=== PATIENT | female | born 1970 | race Caucasian/White ===

== ENCOUNTER 2017-04-11 16:56 | Emergency (ER) | payer BC, OTHER ==
[2017-04-11 17:12] VITALS: BP 128/80; PULSE 109; TEMP 98.4; BMI 19.5
[2017-04-11] MEDS ORDERED: PANTOPRAZOLE SODIUM 40 MG in SODIUM CHLORIDE 100 ML IVPB ONE (17:38)
[2017-04-11] MEDS ORDERED: MAG HYDROX/AL HYDROX/SIMETH 30 ML UNIT-DOSE CUP PO ONE (17:39)
[2017-04-11] MEDS ORDERED: SODIUM CHLORIDE 500 ML IV STA (17:41)
--- NOTE | 2017-04-11 17:41 | PDOC ---
History of Present Illness - General Chief Complaint: Pain, Acute Stated Complaint: BLURRY VISION Time Seen by Provider: 04/11/17 17:23 - History of Present Illness Initial Comments: 04/11/17 17:39 46 yo F with h/o DVT, HTN, depression, Multiple Sclerosis, Optic Neuritis, and Reflux who presents with abdominal pain.. Spouse at bedside to assist in report. Reports sharp, burning epigastric pain Q30 minutes for the past 2 days. Pain lasts 2-3 minutes. Endorses nausea without vomiting, and lightheadedness for past 2 days. Symptoms non positional and not exacerbated with movement, or position. Denies migration of pain or radiation to back. Has been experiencing dysuria for past week.Denies fevers/chills, postprandial pain, diarrhea, constipation, blood in stool, hematuria, flank pain. Denies OTC analgesia or treatment for reflux symptoms. Denies h/o abdominal surgery, gastrointestinal disease, or GI like illness. Per Pt. spouse, she has been expereincing sucidal thoughts beginning 04/06. She has called her spouse and told him she wants to kill herself. She does not have a plan, and has no h/o prior suicide attempt. He states that she has been crying and eating less for the past 7 days. Her response is "everyone is distant." Her family live out the state, and she has been struggling with her pain control over the past week. Pt. currently on duloxetine. Past History - Past Medical History Allergies/Adverse Reactions: Allergies Allergy/AdvReac Type Severity Reaction Status Date / Time Iodinated Contrast Media - Allergy Severe Difficulty Verified 04/11/17 17:07 Oral and Breathing Home Medications: Ambulatory Orders Pantoprazole Sodium [Protonix -] 20 mg PO BID #14 tablet.ec 01/11/14 Amlodipine Besylate [Norvasc -] 2.5 mg PO DAILY 04/11/17 Duloxetine HCl 60 mg PO DAILY 04/11/17 Interferon Beta-1A/Albumin [Avonex 30 Mcg Vial Kit] 30 mcg IM WEEKLY 04/11/17 Sulfamethoxazole/Trimethoprim [Bactrim Ds Tablet] 1 each PO DAILY #5 tablet HTN: Yes Psychiatric Problems: Yes (DEPRESSION) Other medical history: MULTIPLE SCLEROSIS - Psycho/Social/Smoking Cessation Hx Suicidal Ideation: No Smoking History: Never smoked Have you smoked in the past 12 months: No Hx Alcohol Use: No Drug/Substance Use Hx: No Substance Use Type: None Hx Substance Use Treatment: No *Physical Exam - Vital Signs Last Vital Signs Temp Pulse Resp BP Pulse Ox 98.4 F 109 H 19 128/80 97 04/11/17 17:08 04/11/17 17:08 04/11/17 17:08 04/11/17 17:08 04/11/17 17:08 04/11/17 18:28 GENERAL: Awake, alert, and fully oriented, in no acute distress HEAD: No signs of trauma, normocephalic, atraumatic EYES: PERRLA, EOMI, sclera anicteric, conjunctiva clear ENT: Auricles normal inspection, hearing grossly normal, nares patent, oropharynx clear without exudates. Moist mucosa NECK: Normal ROM, supple, no lymphadenopathy, JVD, or masses LUNGS: No distress, speaks full sentences, clear to auscultation bilaterally HEART: Regular rate and rhythm, normal S1 and S2, no murmurs, rubs or gallops, peripheral pulses normal and equal bilaterally. ABDOMEN: Soft, nontender, normoactive bowel sounds. No guarding, no rebound. No masses EXTREMITIES: Normal inspection, Normal range of motion, no edema. No clubbing or cyanosis. NEUROLOGICAL: Cranial nerves II through XII grossly intact. Normal speech, normal gait, no focal sensorimotor deficits SKIN: Warm, Dry, normal turgor, no rashes or lesions noted. - Physical Exam Comments: 04/11/17 18:34 GENERAL: Awake, alert, and fully oriented, in no acute distress HEAD: No signs of trauma, normocephalic, atraumatic EYES: PERRLA, EOMI, sclera anicteric, conjunctiva clear ENT: Auricles normal inspection, hearing grossly normal, nares patent, oropharynx clear without exudates. Moist mucosa NECK: Normal ROM, supple, no lymphadenopathy, JVD, or masses LUNGS: No distress, speaks full sentences, clear to auscultation bilaterally HEART: Regular rate and rhythm, normal S1 and S2, no murmurs, rubs or gallops, peripheral pulses normal and equal bilaterally. ABDOMEN: + Epigastric tenderness, Soft, normoactive bowel sounds. Negative No guarding, no rebound. No masses. Absent HSP. EXTREMITIES: Normal inspection, Normal range of motion, no edema. No clubbing or cyanosis. NEUROLOGICAL: Cranial nerves II through XII grossly intact. Normal speech, normal gait, no focal sensorimotor deficits SKIN: Warm, Dry, normal turgor, no rashes or lesions noted ED Treatment Course - LABORATORY CBC & Chemistry Diagram: 04/11/17 17:45 04/11/17 17:45 Medical Decision Making - Medical Decision Making 04/11/17 18:53 46 yo F h/o optic neuritis, multiple sclerosis, and depression who presents with abdominal pain. Pt. endorses epigastirc pain, and recent nausea, dysuria, and lightheadedness. Increasing depression over recent illness. Moderate supsicion of UTI. DDx: UTI, GERD, PUD ED course: CBC, CMP, Lipase, UA 500 ml NS Maloox PO Protonix IVPB 04/11/17 18:58 Urine Trace Leuk Est. 2+ blood TMP-SMX Tobramycin opthalmic jayson. Discharge *DC/Admit/Observation/Transfer Diagnosis at time of Disposition: UTI (urinary tract infection) Qualifiers: Urinary tract infection type: site unspecified Hematuria presence: without hematuria Qualified Code(s): N39.0 - Urinary tract infection, site not specified - Discharge Dispostion Disposition: HOME Admit: No - Prescriptions Prescriptions: Sulfamethoxazole/Trimethoprim [Bactrim Ds Tablet] 1 each PO DAILY #5 tablet - Patient Instructions Printed Discharge Instructions: DI for Depression -- Adult Additional Instructions: Please return to ED if you experience any fevers/chills, Severe abdominal pain, nausea/vomiting ,or worsening symptoms. Print Language: TURKMEN - Attestations Physician Attestion: 04/11/17 19:00 I, Dr. Levi Kong, attest that this document has been prepared under my direction and personally reviewed by me in its entirety. I further attest, that it accurately reflects all work, treatment, procedures and medical decision -making performed by me.
[2017-04-11] MEDS ORDERED: PANTOPRAZOLE SODIUM 100 ML IVPB ONE (17:58)
[2017-04-11] MEDS ORDERED: MAG HYDROX/AL HYDROX/SIMETH 30 ML UNIT-DOSE CUP ONE (17:59)
[2017-04-11 18:00] LABS: BASOPHIL 0.7 % (0-2.0); EOSINOPHIL 0.4 % (0-4.5); MCH 29.5 pg (25.7-33.7); MCHC 32.8 g/dl (32.0-36.0); MEAN CELL VOLUME 89.7 fl (80-96); MEAN PLT VOLUME 8.1 fl (7.5-11.1); NEUTROPHILS 44.9 % (42.8-82.8); PLATELET COUNT 315 K/MM3 (134-434); RDW 13.2 % (11.6-15.6); WHITE BLOOD COUNT 5.2 K/mm3 (4.0-10.0)
[2017-04-11 18:04] LABS: URINE APPEARANCE CLOUDY; URINE BILIRUBIN NEGATIVE (NEGATIVE); URINE BLOOD 3+ (NEGATIVE); URINE COLOR DKYELLOW; URINE GLUCOSE (UA) NEGATIVE (NEGATIVE); URINE KETONE NEGATIVE (NEGATIVE); URINE LEUK ESTERASE TRACE (NEGATIVE); URINE NITRITE POSITIVE (NEGATIVE); URINE UROBILINOGEN NEGATIVE mg/dL (0.2-1.0)
[2017-04-11 18:09] LABS: URINE PROTEIN 1+ (NEGATIVE)
[2017-04-11 18:12] LABS: URINE BACTERIA MANY /hpf (NONE SEEN); URINE HYALINE CAST 13 /lpf; URINE MUCUS MANY; URINE RBC 2 /hpf (0-3); URINE WBC 8 /hpf (3-5)
[2017-04-11] MEDS ORDERED: SULFAMETHOXAZOLE/TRIMETHOPRIM 800MG/160MG D.S. TABLET PO ONE (18:21)
[2017-04-11] MEDS ORDERED: TOBRAMYCIN 0.3% OPHTH SOLN 5 ML BOTTLE OU ONE (18:21)
[2017-04-11] MEDS ORDERED: TOBRAMYCIN 0.3% OPHTH SOLN 5 ML BOTTLE ONE (18:24)
[2017-04-11] MEDS ORDERED: SULFAMETHOXAZOLE/TRIMETHOPRIM 800MG/160MG D.S. TABLET ONE (18:25)
--- NOTE | 2017-04-11 18:25 | PDOC ---
Attending Attestation - HPI HPI: The patient is a 46 yo F with a past medical history significant for MS, caesarian who presents with bilateral itchy eyes and abdominal pain. Patients history is provided by her boyfriend as patient is angolan speaking. The patient also reports 3 days of nausea and abdominal pain. She states she hasnt seen her neurologist recently. The patient just finished her LMP. The patient takes interferon for her MS. The patient also notes she occasionally feels very flushed. The patient denies fevers, chills, vomiting and diarrhea. The patient denies lightheadedness and dizziness. The patient denies chest pain and palpitations. PCP: Dr. Osmel Stover - Physicial Exam PE: GENERAL: Well developed, well nourished. Awake and alert. No acute distress. HEENT: Normocephalic, atraumatic. PERRLA, EOMI. No conjunctival pallor. Sclera are non- icteric. Moist mucous membranes. Oropharynx is clear. NECK: Supple. Full ROM. No JVD. Carotid pulses 2+ and symmetric, without bruits. No thyromegaly. No lymphadenopathy. CARDIOVASCULAR: Regular rate and rhythm. No murmurs, rubs, or gallops. Distal pulses are 2+ and symmetric. PULMONARY: No evidence of respiratory distress. Lungs clear to auscultation bilaterally. No wheezing, rales or rhonchi. ABDOMINAL: Soft. epigastric tenderness to palpation. Non-distended. No rebound or guarding. No organomegaly. Normoactive bowel sounds. MUSCULOSKELETAL Normal range of motion at all joints. No bony deformities or tenderness. No CVA tenderness. EXTREMITIES: No cyanosis. No clubbing. No edema. No calf tenderness. SKIN: Warm and dry. Normal capillary refill. No rashes. No jaundice. NEUROLOGICAL: Alert, awake, appropriate. Cranial nerves 2-12 intact. No deficits to light touch and temperature in face, upper extremities and lower extremities. No motor deficits in the in face, upper extremities and lower extremities. Normoreflexic in the upper and lower extremities. Normal speech. Toes are down-going bilaterally. Gait is normal without ataxia. PSYCHIATRIC: Cooperative. Good eye contact. Appropriate mood and affect. - Medical Decision Making Documentation prepared by Nallely Silverio, acting as medical practitioners for Cherie Hillman MD/. <Nallely Sliverio - Last Filed: 04/11/17 18:28> - Resident Resident Name: Levi Kong - HPI HPI: 04/11/17 18:22 46 yo female has c/o epigatric burning and pain. No vomiting,no fever,no diarrhea, c/o dysuria and b/l itchy eyes, She does not diplopia PMH MS,optic neuritis,HTN Dr Stover is her PCP She has seen Dr Delaney for her MS - Physicial Exam PE: 04/11/17 18:32 46 yo female ,seated relaxed on gurney with c/o dysuria ,epigastric discomfort and itchy eyes for 1 day heent eyes-teofilo eomi ,sl injected,pt is rubbing her eyes neck supple lungs sta c/l cvs tachycardia abd soft, subjective discomfort in all quadrant,no guarding,no rebound neuro axox3 <Cherie Hillman - Last Filed: 04/11/17 18:35>
[2017-04-11 18:28] LABS: ALBUMIN 4.3 g/dl (3.4-5.0); ANION GAP 6 (8-16); CALCIUM 9.5 mg/dL (8.5-10.1); CO2 29 mmol/L (21-32); GLUCOSE,RANDOM 101 mg/dL (74-106); SGOT/AST 18 U/L (15-37); SGPT/ALT 20 U/L (12-78)
[2017-04-11 18:31] LABS: ALK PHOS 67 U/L (45-117); BILIRUBIN,TOTAL 0.4 mg/dL (0.2-1.0); CREATININE 0.6 mg/dL (0.55-1.02); TOT PROT 8.5 g/dl (6.4-8.2)
== END 2017-04-11 19:37 | disposition home or self-care (01) ==
LOC: JER 16:56
PROC: 3E033GC Introduction of Other Therapeutic Substance into Peripheral Vein, Percutaneous Approach (ICD-10-PCS; principal; 2017-04-11)
DX: N39.0 Urinary tract infection, site not specified (principal); F32.9 Major depressive disorder, single episode, unspecified; K21.9 Gastro-esophageal reflux disease without esophagitis; G35 Multiple sclerosis
CPT/HCPCS: 36415; 80053; 81003; 81015; 83690; 85025; 87086; 87186; 96365; 99284-25

== ENCOUNTER 2017-11-03 15:51 | Emergency (ER) | payer BC ==
[2017-11-03 16:40] VITALS: BP 137/101; PULSE 120; TEMP 98.2; BMI 19.8
--- NOTE | 2017-11-03 16:43 | PDOC ---
Rapid Medical Evaluation Chief Complaint: Pain Time Seen by Provider: 11/03/17 16:32 Medical Evaluation: Allergies Allergy/AdvReac Type Severity Reaction Status Date / Time Iodinated Contrast- Oral and Allergy Severe Difficulty Verified 04/11/17 17:07 IV Dye Breathing [Iodinated Contrast Media - Oral and] 11/03/17 16:40 pt c/o: swelling, redness, increased warmth, and burning pain to left foot x 3 days, hx ms, went to see neurologist but unable to see her since it was busy Pt on brief exam: warm, erythematous and edematous left foot, 2+ pedal pulse, tachy and hypertensive Pt ordered for : none pt to proceed to the ED:
--- NOTE | 2017-11-03 17:53 | PDOC ---
History of Present Illness - General Chief Complaint: Pain Stated Complaint: PAIN DUE TO MS Time Seen by Provider: 11/03/17 16:32 - History of Present Illness Initial Comments: 11/03/17 19:17 The patient is a 47 year old female with a history of MS who presents for evaluation of left lower extremity redness. The patient reports a 3 day history of left foot tenderness and redness. She attempted to see her neurologist, but was unable to obtain an appointment prompting her presentation to the ED today for evaluation. She denies any fevers, chills, SOB, chest pain , nausea, vomiting, abdominal pain, or changes with urination or bowel movements. She denies any other symptoms. Past History - Past Medical History Allergies/Adverse Reactions: Allergies Allergy/AdvReac Type Severity Reaction Status Date / Time Iodinated Contrast- Oral and Allergy Severe Difficulty Verified 04/11/17 17:07 IV Dye Breathing [Iodinated Contrast Media - Oral and] Home Medications: Ambulatory Orders Pantoprazole Sodium [Protonix -] 20 mg PO BID #14 tablet.ec 01/11/14 Amlodipine Besylate [Norvasc -] 2.5 mg PO DAILY 04/11/17 Duloxetine HCl 60 mg PO DAILY 04/11/17 Interferon Beta-1A/Albumin [Avonex 30 Mcg Vial Kit] 30 mcg IM WEEKLY 04/11/17 Cephalexin [Keflex] 500 mg PO QID #40 capsule 11/03/17 Sulfamethoxazole/Trimethoprim [Bactrim Ds -] 2 tab PO DAILY #40 tablet 11/03/17 COPD: No HTN: Yes Psychiatric Problems: Yes (DEPRESSION) - Suicide/Smoking/Psychosocial Hx Smoking History: Never smoked Have you smoked in the past 12 months: No Information on smoking cessation initiated: No Hx Alcohol Use: No Drug/Substance Use Hx: No Substance Use Type: None Hx Substance Use Treatment: No Review of Systems - Review of Systems Comments:: 11/03/17 19:32 Constitutional: No fevers, chills, fatigue, malaise HEENT: No Rhinorrhea, nasal congestion, visual changes Cardiovascular: No chest pain, syncope, palpitations, lightheadedness Respiratory: No Cough, SOB, Hemoptysis, Gastrointestinal: No Abdominal pain, Nausea, Vomiting, Constipation, Diarrhea, Melena Genitourinary: No Dysuria, Frequency, Urgency, Hesitancy, Hematuria, Flank pain Musculoskeletal: No Myalgia, arthralgia Skin: Left foot redness and tenderness. No rashes, itching, bruising, pallor Neurologic: No Headache, Dizziness, Numbness, Weakness, or Tingling Psychiatric: No Hallucinations. No SI or HI *Physical Exam - Vital Signs Last Vital Signs Temp Pulse Resp BP Pulse Ox 98.2 F 120 H 18 137/101 100 11/03/17 16:33 11/03/17 16:33 11/03/17 16:33 11/03/17 16:33 11/03/17 16:33 - Physical Exam Comments: 11/03/17 19:33 General Appearance: Nourished. No Apparent Distress HEENT: EOMI, MICKEY. No Pharyngeal Erythema, Tonsillar Exudate, Tonsillar Erythema Neck: No Cervical Lymphadenopathy Respiratory/Chest: Lungs Clear, Normal Breath Sounds. No Crackles, Rales, Rhonchi, Wheezing Cardiovascular: Regular Rhythm, Regular Rate. No Murmur, Gallops, Rubs Gastrointestinal/Abdominal: Normal Bowel Sounds, Soft. No Guarding, Rebound, Tenderness Musculoskeletal: No CVA Tenderness Extremity: Erythema and warmth to the left foot to the ankle. Normal Capillary Refill Integumentary: Normal Color, Dry, Warm Neurologic: Fully Oriented, Alert, Normal Mood/Affect, Normal Response, ED Treatment Course - LABORATORY CBC & Chemistry Diagram: 11/03/17 18:00 11/03/17 18:00 Medical Decision Making - Medical Decision Making 11/03/17 17:39 The patient is a 47 year old female with a history of MS who presents for evaluation of left lower extremity redness. Given the patient's physical exam, her symptoms are most consistent with a left foot cellulitis. We will obtain a cbc, cmp to evaluate further and treat the patient here in the ED with bactrim and keflex. We will continue to monitor and reassess. 11/03/17 19:40 CBC, cmp are unremarkable. We are comfortable discharging the patient home at this time with neurology and pcp follow up. We discussed return precautions with the patient including but not limited to: worsening redness, lymphangitis, worsening pain, fevers. We will send the patient on a course of bactrim and keflex. The patient voiced understanding and is agreeable with the plan. *DC/Admit/Observation/Transfer Diagnosis at time of Disposition: Cellulitis Qualifiers: Site of cellulitis: extremity Site of cellulitis of extremity: lower extremity Laterality: left Qualified Code(s): L03.116 - Cellulitis of left lower limb - Discharge Dispostion Disposition: HOME Condition at time of disposition: Good Admit: No - Prescriptions Prescriptions: Cephalexin [Keflex] 500 mg PO QID #40 capsule Sulfamethoxazole/Trimethoprim [Bactrim Ds -] 2 tab PO DAILY #40 tablet - Referrals Referrals: Osmel Stover [Primary Care Provider] - - Patient Instructions Printed Discharge Instructions: DI for Cellulitis -- Adult Additional Instructions: Please return to the ER if you experience concerning or worsening symptoms including worsening fevers, redness, swelling, or pain. You were seen in the ER for redness to your left foot. Your lab results were normal. Your symptoms are likely due to a skin infection. We have sent two antibiotics to your pharmacy that you should take as directed. It is important that you call to schedule a follow up appointment with your neurologist. Please call to schedule a follow up appointment with your primary care provider within 1 week to discuss your ER visit. Print Language: MOHAWK - Post Discharge Activity Forms/Work/School Notes: Back to Work
[2017-11-03 18:12] LABS: BASO % 0.6 % (0-2.0); EOS % 0.5 % (0-4.5); HEMATOCRIT 34.2 % (32.4-45.2); HEMOGLOBIN 11.4 GM/dL (10.7-15.3); LYMPH % 20.2 % (8-40); MCH 29.6 pg (25.7-33.7); MCHC 33.4 g/dl (32.0-36.0); MEAN CELL VOLUME 88.4 fl (80-96); MEAN PLT VOLUME 8.2 fl (7.5-11.1); MONO % 7.4 % (3.8-10.2); NEUT % 71.3 % (42.8-82.8); PLATELET COUNT 336 K/MM3 (134-434); RBC 3.87 M/mm3 (3.60-5.2); RDW 13.3 % (11.6-15.6); WHITE BLOOD COUNT 8.3 K/mm3 (4.0-10.0)
[2017-11-03] MEDS ORDERED: ACETAMINOPHEN 325 MG TABLET (FP) ONE ×2 (18:12→18:24)
[2017-11-03] MEDS ORDERED: ACETAMINOPHEN 325 MG TABLET (FP) PO ONE (18:15)
[2017-11-03 18:40] LABS: ALBUMIN 3.8 g/dl (3.4-5.0); ANION GAP 8 (8-16); BLOOD UREA NITROGEN 13 mg/dL (7-18); CALCIUM 8.5 mg/dL (8.5-10.1); CHLORIDE 105 mmol/L (98-107); CO2 26 mmol/L (21-32); GLUCOSE,RANDOM 115 mg/dL (74-106); SODIUM 139 mmol/L (136-145)
[2017-11-03 18:50] LABS: ALK PHOS 65 U/L (45-117); BILIRUBIN,TOTAL 0.7 mg/dL (0.2-1.0); CREATININE 0.6 mg/dL (0.55-1.02); SGPT/ALT 16 U/L (12-78); TOT PROT 7.6 g/dl (6.4-8.2)
[2017-11-03 18:51] LABS: POTASSIUM 3.5 mmol/L (3.5-5.1); SGOT/AST 22 U/L (15-37)
[2017-11-03] MEDS ORDERED: SULFAMETHOXAZOLE/TRIMETHOPRIM 800MG/160MG D.S. TABLET PO ONE (19:01)
[2017-11-03] MEDS ORDERED: amLODIPine BESYLATE 2.5 MG TABLET (FP) PO ONE (19:01)
[2017-11-03] MEDS ORDERED: CEPHALEXIN MONOHYDRATE 500 MG CAPSULE (UD) PO ONE (19:01)
[2017-11-03] MEDS ORDERED: CEPHALEXIN MONOHYDRATE 250 MG CAPSULE (FP) ONE (19:04)
[2017-11-03] MEDS ORDERED: amLODIPine BESYLATE 5 MG TABLET (FP) ONE (19:04)
[2017-11-03] MEDS ORDERED: SULFAMETHOXAZOLE/TRIMETHOPRIM 800MG/160MG D.S. TABLET ONE (19:04)
--- NOTE | 2017-11-03 19:06 | PDOC ---
Attending Attestation - Resident Resident Name: Jose Aguila - ED Attending Attestation I have performed the following: I have examined & evaluated the patient, The case was reviewed & discussed with the resident, I agree w/resident's findings & plan, Exceptions are as noted - Medical Decision Making 11/03/17 19:01 I, Dr. Zonia Winn, DO, attest that this document has been prepared under my direction and personally reviewed by me in its entirety. I further attest, that it accurately reflects all work, treatment, procedures and medical decision -making performed by me. 11/03/17 19:01 a/p: 47yo female with hx of MS -redness/warmth swelling to L lateral foot suspect localized cellulitis -ambulatory with a steady gait has not tried outpt abx no fevers neuro intact pt very anxious during the interview - asking to go home -no elevated wbc, no lymphangitic spread will give bactrim, keflex and discuss all reasons to return to the Ed and need for follow up with her PMD and also her neurologist (she hasn't seen her neurologist for her MS for over a year) discussed fevers, lymphangitic spread - will attempt outpt therapy and discussed reasons to return for inpt abx stable for d/c to home <Zonia Winn - Last Filed: 11/03/17 19:> - HPI HPI: 11/03/17 19:15 The patient is a 47 year old female, with a significant past medical history of MS, who presents to the emergency department with, left foot redness, warmth and pain for approx. 3 days. The patient denies any recent spreading of the left foot redness or worsening symptoms. The patient denies any recent injury or trauma. The patient also reports mild blurry vision. The patient reports she has not seen her Neurologist in approx. one year due to her recent insurance changes. She denies recent fevers, chills, headache or dizziness. She denies difficulty ambulating. She denies recent nausea, vomit, diarrhea or constipation. She denies recent dysuria, frequency, urgency or hematuria. She denies recent chest pain or shortness of breath. Allergies: Iodinated Contract - Oral and IV Dye Past surgical history: None reported. Social history: Nonsmoker. Denies EtOH use and recreational drug use. Primary Care Physician: Dr. Osmel Stover Neurologist: Dr. Hollis Documentation prepared by Yuniel Barillas, acting as medical equipment repairer for Zonia Winn DO. - Physicial Exam PE: 11/03/17 19:16 Constitutional: +Nervous. Awake, alert, oriented. Head: Normocephalic. Atraumatic Eyes: PERRL. EOMI. Conjunctivae are not pale. ENT: Mucous membranes are moist and intact. Posterior pharynx without exudates or erythema. Uvula midline. Neck: Supple. Full ROM. No lymphadenopathy. Cardiovascular: +Tachycardia. Regular rhythm. S1, S2 regular. Distal pulses are 2+ and symmetric. Pulmonary/Chest: No evidence of respiratory distress. Clear to auscultation bilaterally No wheezing, rales or rhonchi. Abdominal: Soft and non-distended. There is no tenderness. No rebound, guarding or rigidity. No organomegaly. No palpable masses. Good bowel sounds. Back: No CVA tenderness. Musculoskeletal +Erythematous, warmth to the left lateral ankle across lateral malleolus. No lymphangitic spread. +Left lateral foot mild tenderness. No difficulty ambulating. No cyanosis. No clubbing. Full range of motion in all extremities. No calf tenderness. Radial/pedal pulses are intact and 2+ bilaterally Skin: Skin is warm and dry. No petechiae. No purpura. Neurological: Alert and oriented to person, place, and time. Cranial nerves II -XII are grossly intact. Normal speech. Strength is grossly symmetric. No sensory deficits. Psychiatric: Good eye contact. Normal interaction, affect and behavior. <Yuniel Barillas - Last Filed: 11/03/17 19:30>
== END 2017-11-03 19:42 | disposition home or self-care (01) ==
LOC: JER 15:51
DX: L03.116 Cellulitis of left lower limb (principal); I10 Essential (primary) hypertension; F32.9 Major depressive disorder, single episode, unspecified; G35 Multiple sclerosis
CPT/HCPCS: 36415; 80053; 85025; 99282-25

== ENCOUNTER 2018-03-07 04:43 | Emergency (ER) | payer BC ==
[2018-03-07 05:12] VITALS: BMI 20.5
--- NOTE | 2018-03-07 05:13 | PDOC ---
History of Present Illness - General Chief Complaint: Edema Stated Complaint: RASH/SWELLING Time Seen by Provider: 03/07/18 04:53 History Source: Patient - History of Present Illness Initial Comments: 03/07/18 06:03 47 YEAR OLD FEMALE with b/l lower extremity edema, swelling and pain. + chills. denies fever. patient has a history of MS with generalized weakness Past History - Past Medical History Allergies/Adverse Reactions: Allergies Allergy/AdvReac Type Severity Reaction Status Date / Time Iodinated Contrast- Oral and Allergy Severe Difficulty Verified 04/11/17 17:07 IV Dye Breathing [Iodinated Contrast Media - Oral and] Home Medications: Ambulatory Orders Amlodipine Besylate [Norvasc -] 2.5 mg PO DAILY 04/11/17 Duloxetine HCl [Cymbalta] 30 mg PO DAILY 03/07/18 Interferon Beta-1A [Avonex] 30 mcg IM MONTHLY 03/07/18 Ranitidine [Zantac -] 150 mg PO DAILY 03/07/18 COPD: No HTN: Yes Psychiatric Problems: Yes (DEPRESSION) - Suicide/Smoking/Psychosocial Hx Smoking History: Never smoked Have you smoked in the past 12 months: No Hx Alcohol Use: No Drug/Substance Use Hx: No Substance Use Type: None Hx Substance Use Treatment: No *Physical Exam - Vital Signs Last Vital Signs Temp Pulse Resp BP Pulse Ox 98.2 F 89 19 130/80 98 03/07/18 04:52 03/07/18 04:52 03/07/18 04:52 03/07/18 04:52 03/07/18 04:52 - Physical Exam General Appearance: Yes: Appropriately Dressed Respiratory/Chest: positive: Lungs Clear, Normal Breath Sounds Gastrointestinal/Abdominal: positive: Normal Bowel Sounds, Soft Extremity: positive: Normal Capillary Refill, Normal Inspection, Normal Range of Motion, Pedal Edema, Swelling, Calf Tenderness, Erythema (b/l lower extremities. + insect bites) Integumentary: positive: Normal Color, Dry, Warm Neurologic: positive: Fully Oriented, Alert, Normal Mood/Affect ED Treatment Course - LABORATORY CBC & Chemistry Diagram: 03/07/18 05:37 03/07/18 05:37 Medical Decision Making - Medical Decision Making 03/07/18 06:58 A: pedal edema celulitis P: cbc cmp esr vascular u/s to r/o DVT *DC/Admit/Observation/Transfer Diagnosis at time of Disposition: Pedal edema Cellulitis Qualifiers: Site of cellulitis: extremity Site of cellulitis of extremity: lower extremity Laterality: unspecified laterality Qualified Code(s): L03.119 - Cellulitis of unspecified part of limb - Discharge Dispostion Condition at time of disposition: Stable - Referrals Referrals: Osmel Stover [Primary Care Provider] - - Patient Instructions - Post Discharge Activity
--- NOTE | 2018-03-07 05:16 | PDOC ---
*Physical Exam - Vital Signs Last Vital Signs Temp Pulse Resp BP Pulse Ox 98.2 F 89 19 130/80 98 03/07/18 04:52 03/07/18 04:52 03/07/18 04:52 03/07/18 04:52 03/07/18 04:52 ED Treatment Course - LABORATORY CBC & Chemistry Diagram: 03/07/18 05:37 03/07/18 05:37 Medical Decision Making - Medical Decision Making 03/07/18 05:15 agree with care from SARINA Resendiz *DC/Admit/Observation/Transfer Diagnosis at time of Disposition: Pedal edema, Cellulitis, UTI (urinary tract infection) - Discharge Dispostion Disposition: HOME Condition at time of disposition: Good - Prescriptions Prescriptions: Cephalexin [Keflex] 500 mg PO Q6H #28 capsule Sulfamethoxazole/Trimethoprim [Bactrim Ds -] 1 tab PO BID #14 tablet - Referrals Referrals: Osmel Stover [Primary Care Provider] - - Patient Instructions Printed Discharge Instructions: Cellulitis, DI for Urinary Tract Infection (UTI ) Additional Instructions: Usted fue tratado por roxy posible infeccin en esa piernas debido a enrojecimiento, dolor e hinchazn. Los sntomas tambin pueden deberse a un flujo sanguneo deficiente en las venas de las piernas. Por favor tome antibiticos segn lo prescrito Tambin necesitas elevar tus piernas en casa colocando almohadas debajo de ellas. [place] ayudar con la hinchazn El ultrasonido no mostr cogulos en las piernas y tus laboratorios fueron normales Tu orina tambin mostr roxy infeccin Los antibiticos se encargarn de la infeccin de las piernas y la orina Por favor florence un seguimiento con kendall PMD en 2 gutiérrez para el control de heridas. si no puede andrew MD, regrese a ED en 2 gutiérrez Si los sntomas empeoran y / o desarrolla fiebre, regrese a ED inmediatamente Print Language: GREEK - Post Discharge Activity
[2018-03-07 05:53] LABS: BASO % 0.7 % (0-2.0); EOS % 0.8 % (0-4.5); HEMOGLOBIN 10.9 GM/dL (10.7-15.3); LYMPH % 16.2 % (8-40); MCH 28.3 pg (25.7-33.7); MCHC 33.1 g/dl (32.0-36.0); MEAN CELL VOLUME 85.6 fl (80-96); MEAN PLT VOLUME 8.4 fl (7.5-11.1); MONO % 8.8 % (3.8-10.2); NEUT % 73.5 % (42.8-82.8); PLATELET COUNT 278 K/MM3 (134-434); RBC 3.86 M/mm3 (3.60-5.2); RDW 14.3 % (11.6-15.6); WHITE BLOOD COUNT 8.5 K/mm3 (4.0-10.0)
[2018-03-07 06:29] LABS: ALBUMIN 3.3 g/dl (3.4-5.0); ALK PHOS 75 U/L (45-117); ANION GAP 7 (8-16); BILIRUBIN,TOTAL 0.5 mg/dL (0.2-1.0); BLOOD UREA NITROGEN 7 mg/dL (7-18); CALCIUM 8.5 mg/dL (8.5-10.1); CHLORIDE 102 mmol/L (98-107); CO2 29 mmol/L (21-32); CREATININE 0.6 mg/dL (0.55-1.02); GLUCOSE,RANDOM 93 mg/dL (74-106); SGPT/ALT 16 U/L (12-78); SODIUM 138 mmol/L (136-145); TOT PROT 7.3 g/dl (6.4-8.2)
[2018-03-07 06:30] LABS: POTASSIUM 4.2 mmol/L (3.5-5.1); SGOT/AST 22 U/L (15-37)
[2018-03-07 06:56] LABS: URINE APPEARANCE SLCLOUDY; URINE BILIRUBIN NEGATIVE (<2.0 mg/dL); URINE COLOR YELLOW; URINE GLUCOSE (UA) NEGATIVE (NEGATIVE); URINE KETONE 1+ (NEGATIVE); URINE LEUK ESTERASE TRACE (NEGATIVE); URINE NITRITE POSITIVE (NEGATIVE); URINE UROBILINOGEN NEGATIVE mg/dL (0.2-1.0)
[2018-03-07 07:11] LABS: URINE PROTEIN 1+ (NEGATIVE)
[2018-03-07 07:12] LABS: EPI CELLS RARE /HPF (FEW); URINE BACTERIA RARE /hpf (NONE SEEN); URINE MUCUS RARE
--- NOTE | 2018-03-07 07:45 | PDOC ---
*Physical Exam - Vital Signs Last Vital Signs Temp Pulse Resp BP Pulse Ox 98.3 F 99 H 18 111/72 99 03/07/18 07:08 03/07/18 07:08 03/07/18 07:08 03/07/18 07:08 03/07/18 07:08 - Physical Exam General Appearance: Yes: Appropriately Dressed. No: Apparent Distress HEENT: positive: Normal Voice Neck: positive: Supple Respiratory/Chest: negative: Respiratory Distress Extremity: positive: Other Integumentary: positive: Dry, Warm, Rash (B/l LE w/ edema/erythema/warmth more so to medial and lateral aspect of ankles extending to lerma b/l, L>>R w/ scattered areas of discrete tense, erythematous macular lesions, pedal pulses intact b/l) Neurologic: positive: Alert, Normal Mood/Affect ED Treatment Course - LABORATORY CBC & Chemistry Diagram: 03/07/18 05:37 03/07/18 05:37 - ADDITIONAL ORDERS Additional order review: Laboratory Results 03/07/18 03/07/18 06:43 05:37 Sodium 138 Potassium 4.2 Chloride 102 Carbon Dioxide 29 Anion Gap 7 L BUN 7 Creatinine 0.6 Creat Clearance w eGFR > 60 Random Glucose 93 Calcium 8.5 Total Bilirubin 0.5 D AST 22 ALT 16 Alkaline Phosphatase 75 Total Protein 7.3 Albumin 3.3 L Urine Color Yellow Urine Appearance Slcloudy Urine pH 6.0 Ur Specific [place] 1.017 Urine Protein 1+ H Urine Glucose (UA) Negative Urine Ketones 1+ H Urine Blood Negative Urine Nitrite Positive Urine Bilirubin Negative Urine Urobilinogen Negative Ur Leukocyte Esterase Trace Urine WBC (Auto) 28 Urine RBC (Auto) None Ur Epithelial Cells Rare Urine Bacteria Rare Urine Mucus Rare 03/07/18 05:37 RBC 3.86 MCV 85.6 MCHC 33.1 RDW 14.3 MPV 8.4 Neutrophils % 73.5 Lymphocytes % 16.2 Monocytes % 8.8 Eosinophils % 0.8 Basophils % 0.7 Medical Decision Making - Medical Decision Making 03/07/18 07:37 Patient signed out to me at 7 AM 47-year-old patient with history of MS on Avonex here with bilateral lower extremity pain, swelling and redness 2 days. Denies any fever or chills. No known bites or other trauma. Patient well-appearing and stable with with edema/ erythema and ttp to b/l foot that extends up to lerma per prior team. Wbc wnl. US pending. Plan is to admit for cellulitis 03/07/18 08:[address] Alvarez who states bilateral leg findings possibly represent venous stasis w/ discrete, tense erythematous areas m/l representing possibly capillary damage. Agrees with ultrasound to rule out DVT. States if negative, patient can be discharged with antibiotics and follow-up with her PMD in 2 days for re-eval 03/07/18 10:22 Labs/US neg. Ua w/ +nit/le, cx sent. Will dc w/ bactrim/keflex as d/w ED attg. + Ucx from 2017 reviewed. Pt to f/u with PMD in 2 days or return to ED *DC/Admit/Observation/Transfer Diagnosis at time of Disposition: Pedal edema Cellulitis Qualifiers: Site of cellulitis: extremity Site of cellulitis of extremity: lower extremity Laterality: unspecified laterality Qualified Code(s): L03.119 - Cellulitis of unspecified part of limb UTI (urinary tract infection) Qualifiers: Urinary tract infection type: site unspecified Hematuria presence: without hematuria Qualified Code(s): N39.0 - Urinary tract infection, site not specified - Discharge Dispostion Disposition: HOME Condition at time of disposition: Good - Prescriptions Prescriptions: Cephalexin [Keflex] 500 mg PO Q6H #28 capsule Sulfamethoxazole/Trimethoprim [Bactrim Ds -] 1 tab PO BID #14 tablet - Referrals Referrals: Osmel Stover [Primary Care Provider] - - Patient Instructions Printed Discharge Instructions: Cellulitis, DI for Urinary Tract Infection (UTI ) Additional Instructions: Usted fue tratado por roxy posible infeccin en esa piernas debido a enrojecimiento, dolor e hinchazn. Los sntomas tambin pueden deberse a un flujo sanguneo deficiente en las venas de las piernas. Por favor tome antibiticos segn lo prescrito Tambin necesitas elevar tus piernas en casa colocando almohadas debajo de ellas. [place] ayudar con la hinchazn El ultrasonido no mostr cogulos en las piernas y tus laboratorios fueron normales Tu orina tambin mostr roxy infeccin Los antibiticos se encargarn de la infeccin de las piernas y la orina Por favor florence un seguimiento con kendall PMD en 2 gutiérrez para el control de heridas. si no puede andrew MD, regrese a ED en 2 gutiérrez Si los sntomas empeoran y / o desarrolla fiebre, regrese a ED inmediatamente Print Language: TURKISH - Post Discharge Activity
[2018-03-07] MEDS ORDERED: CLINDAMYCIN 600MG PREMIX IVPB 600 MG/50 ML BAG IVPB ONE ×2 (08:23→08:57)
[2018-03-07 08:31] LABS: ERYTHROCYTE SEDIMENTATION RATE 43 mm/hr (0-20)
[2018-03-07 10:40] VITALS: BP 124/75; PULSE 90; TEMP 98.4
== END 2018-03-07 10:40 | disposition home or self-care (01) ==
LOC: JER 04:43
DX: R60.0 Localized edema (principal); L03.116 Cellulitis of left lower limb; L03.115 Cellulitis of right lower limb; N39.0 Urinary tract infection, site not specified; G35 Multiple sclerosis
CPT/HCPCS: 36415; 80053; 81003; 81015; 85025; 85651; 87040; 93970-TC; 96365; 99282-25

== ENCOUNTER 2019-05-28 15:37 | Emergency (ER) | payer BC ==
--- NOTE | 2019-05-28 15:48 | PDOC ---
Rapid Medical Evaluation Medical Evaluation: Allergies Allergy/AdvReac Type Severity Reaction Status Date / Time Iodinated Contrast Media Allergy Severe Difficulty Verified 04/11/17 17:07 [Iodinated Contrast Media - Breathing Oral and] I have performed a brief in-person evaluation of this patient. The patient presents with a chief complaint of: c/o epigastric pain x 1 week; yesterday, pain was radiating to chest; +burning, denies vomiting, diarrhea, urinary complaints Pertinent physical exam findings: In nad, +epigastric tenderness I have ordered the following: labs, ekg The patient will proceed to the ED for further evaluation. 05/28/19 15:45
[2019-05-28 15:49] VITALS: BP 149/98; PULSE 109; TEMP 98; BMI 18.3
[2019-05-28] MEDS ORDERED: MAG HYDROX/AL HYDROX/SIMETH 30 ML UNIT-DOSE CUP PO ONE (15:49)
[2019-05-28] MEDS ORDERED: FAMOTIDINE 20 MG/50 ML IVPB 20 MG/50 ML MG IVPB ONE ×2 (15:49→17:21)
[2019-05-28 16:27] LABS: BASO % 1.2 % (0-2.0); EOS % 2.5 % (0-4.5); HEMATOCRIT 37.5 % (32.4-45.2); HEMOGLOBIN 12.5 GM/dL (10.7-15.3); LYMPH % 32.4 % (8-40); MCH 28.4 pg (25.7-33.7); MCHC 33.2 g/dl (32.0-36.0); MEAN CELL VOLUME 85.5 fl (80-96); MEAN PLT VOLUME 7.8 fl (7.5-11.1); MONO % 19.4 % (3.8-10.2); NEUT % 44.5 % (42.8-82.8); PLATELET COUNT 391 K/MM3 (134-434); RBC 4.39 M/mm3 (3.60-5.2); RDW 15.2 % (11.6-15.6); WHITE BLOOD COUNT 5.2 K/mm3 (4.0-10.0)
[2019-05-28 16:46] LABS: ALBUMIN 3.8 g/dl (3.4-5.0); ALK PHOS 73 U/L (45-117); ANION GAP 8 MMOL/L (8-16); BILIRUBIN,TOTAL 0.2 mg/dL (0.2-1); BLOOD UREA NITROGEN 9.3 mg/dL (7-18); CALCIUM 9.7 mg/dL (8.5-10.1); CHLORIDE 105 mmol/L (98-107); CO2 30 mmol/L (21-32); CREATININE 0.8 mg/dL (0.55-1.3); GLUCOSE,RANDOM 94 mg/dL (74-106); LIPASE 98 U/L (73-393); POTASSIUM 4.6 mmol/L (3.5-5.1); SGOT/AST 16 U/L (15-37); SGPT/ALT 16 U/L (13-61); SODIUM 142 mmol/L (136-145); TOT PROT 8.1 g/dl (6.4-8.2)
[2019-05-28] MEDS ORDERED: MAG HYDROX/AL HYDROX/SIMETH 30 ML UNIT-DOSE CUP ONE (17:21)
[2019-05-28] MEDS ORDERED: SODIUM CHLORIDE 0.9% 500 ML INFUS.BAG IV ONE (17:44)
--- NOTE | 2019-05-28 17:48 | PDOC ---
History of Present Illness - General Chief Complaint: Pain, Acute Stated Complaint: ABD PAIN Time Seen by Provider: 05/28/19 15:45 - History of Present Illness Initial Comments: Zaira Dejesus is a 48yo woman with a PMH of MS, GERD, previous treatment for H pylori 2 years ago who presents with one week of nausea, abdominal bloating that worsens after eating, and burning epigastric pain. She reports that she has not felt this bad since her "stomach infection" 2 years ago. She reports that she has been trying to eat, but whenever she tries to eat anything she feels very full and bloated. Ms Dejesus reports burning epigastric pain that improves when she takes her home ranitidine, which she reports she takes every morning. She denies any fever, chills, vomiting, chest pain, SOB, change in bowel habits, sick contacts, or recent travel. She does endorse the sensation of something stuck in her throat, especially when she lays down at night. Past History - Past Medical History Allergies/Adverse Reactions: Allergies Allergy/AdvReac Type Severity Reaction Status Date / Time Iodinated Contrast Media Allergy Severe Difficulty Verified 05/28/19 15:49 [Iodinated Contrast Media - Breathing Oral and] Home Medications: Ambulatory Orders Amlodipine Besylate [Norvasc -] 5 mg PO DAILY 04/11/17 Cephalexin [Keflex] 500 mg PO Q6H #28 capsule 03/07/18 Duloxetine HCl [Cymbalta] 30 mg PO DAILY 03/07/18 Interferon Beta-1A [Avonex] 30 mcg IM MONTHLY 03/07/18 Ranitidine [Zantac -] 150 mg PO DAILY 03/07/18 Sulfamethoxazole/Trimethoprim [Bactrim Ds -] 1 tab PO BID #14 tablet 03/07/18 COPD: No HTN: Yes Psychiatric Problems: Yes (DEPRESSION) - Suicide/Smoking/Psychosocial Hx Smoking History: Never smoked Have you smoked in the past 12 months: No Hx Alcohol Use: No Drug/Substance Use Hx: No Substance Use Type: None Hx Substance Use Treatment: No Review of Systems - Review of Systems Comments:: General: No fevers, no chills, no weight or appetite change, no malaise HEENT: No changes in vision, no changes in hearing, no congestion, no sore throat CV: No chest pain, no palpitations, no LE edema Pulm: No SOB, no cough, no wheezing GI: See HPI : No frequency, no urgency, no dysuria Musc: No back pain, no joint swelling, no recent injury Skin: No rash, no lesions, no erythema Endo: No excessive thirst, no heat/cold intolerance Heme: No unusual bruising or bleeding, no swollen glands Neuro: No syncope, no numbness/tingling, no focal weakness Vasc: No claudication Psych: No recent change in mood, no SI or HI *Physical Exam - Vital Signs Last Vital Signs Temp Pulse Resp BP Pulse Ox 98.0 F 109 H 16 149/98 98 05/28/19 15:43 05/28/19 15:43 05/28/19 15:43 05/28/19 15:43 05/28/19 15:43 - Physical Exam Comments: General: Comfortable, no acute distress HEENT: PERRL, EOMI, MMM, voice normal, normal neck ROM, no LAD Cards: RRR, no murmur appreciated Pulm: Comfortable on room air, clear to auscultation bilaterally Abd: Soft, nondistended. Epigastric and RUQ TTP, no rigidity or involuntary guarding Ext: Atraumatic. No LE edema. ROM intact. WWP Skin: Normal color, no rashes or lesions Neuro: A&Ox3, CN grossly intact, normal speech, motor/sensory grossly intact and symmetric Psych: Mood appropriate to situation ED Treatment Course - LABORATORY CBC & Chemistry Diagram: 05/28/19 16:05 05/28/19 16:05 - ADDITIONAL ORDERS Additional order review: Laboratory Results 05/28/19 16:05 Sodium 142 Potassium 4.6 Chloride 105 Carbon Dioxide 30 Anion Gap 8 BUN 9.3 Creatinine 0.8 Est GFR (CKD-EPI)AfAm 101.04 Est GFR (CKD-EPI)NonAf 87.18 Random Glucose 94 Calcium 9.7 Total Bilirubin 0.2 AST 16 ALT 16 Alkaline Phosphatase 73 Troponin I < 0.02 Total Protein 8.1 Albumin 3.8 Lipase 98 05/28/19 16:05 RBC 4.39 MCV 85.5 MCHC 33.2 RDW 15.2 MPV 7.8 Neutrophils % 44.5 D Lymphocytes % 32.4 D Monocytes % 19.4 H D Eosinophils % 2.5 D Basophils % 1.2 - Medications Given in the ED: ED Medications Discontinued Medications Generic Name Dose Route Start Last Admin Trade Name Rika PRN Reason Stop Dose Admin Al Hydroxide/Mg Hydroxide 30 ml 05/28/19 15:49 05/28/19 17:26 Mylanta Oral Suspension - PO 05/28/19 15:50 30 ml ONCE ONE Administration Famotidine/Sodium Chloride 20 mg in 50 mls @ 100 mls/hr 05/28/19 15:49 17:26 Pepcid 20 Mg Premixed Ivpb - IVPB 05/28/19 16:18 100 mls/hr ONCE ONE Administration Medical Decision Making - Medical Decision Making 05/28/19 17:44 Zaira Dejesus is a 48yo woman with a PMH of MS, GERD, previous treatment for H pylori 2 years ago who presents with one week of nausea, abdominal bloating that worsens after eating, and burning epigastric pain that are similar to symptoms she had with her h pylori infection. She reports partial relief from home ranitidine. - Pt with known GERD who presents with worsening reflux symptoms. Brought her home medications, was taking ranitidine daily but is prescribed as BID. Symptoms may be due to under-dosing her H2 lulu - CBC, chemistry sent from [facility], completed. Results reviewed. No abnormalities appreciated, no LFT elevations or leukocytosis - EKG w/ sinus tach at HR 101, no concerning t-wave or ST changes - Tachycardic on arrival 05/28/19 18:44 - Pt returned from US. Eating doritos and drinking soda. - US read pending. Reviewed in ED, no wall thickening, duct dilation, or pericholecystic fluid appreciated. - Will most likely d/c home with GI follow up Discussed with Dr Nazario. Radha Weldon PGY2 *DC/Admit/Observation/Transfer Diagnosis at time of Disposition: Gastritis Qualifiers: Gastritis type: other gastritis Chronicity: unspecified Gastritis bleeding: presence of bleeding unspecified Qualified Code(s): K29.60 - Other gastritis without bleeding - Discharge Dispostion Disposition: HOME Condition at time of disposition: Stable Decision to Admit order: No - Referrals Referrals: Lidia Brown [Primary Care Provider] - Ninoska Chiang MD [Staff Physician] - - Patient Instructions Printed Discharge Instructions: DI for Gastritis, GERD Diet Additional Instructions: Discharge Instructions: You were seen in the emergency department for stomach pain and bloating. Your blood tests did not show any concerning changes. Your symptoms are most likely due to your previously diagnosed reflux. - Continue to take your home ranitidine twice daily (2x/day) as prescribed - Avoid spicy, greasy foods, dairy products, caffeine, and alcohol. These can worsen your symptoms. - You have been referred to a GI doctor for follow up. Make an appointment within the next 1-2 weeks for follow up. You may need additional testing. - Seek immediate care if you have worsening symptoms, you see blood in your vomit, you are unable to eat anything, you become dehydrated, or you have any other medical emergency. Print Language: PASHTO - Post Discharge Activity
--- NOTE | 2019-05-28 19:13 | PDOC ---
Attending Attestation - Resident Resident Name: Radha Weldon - ED Attending Attestation I have performed the following: I have examined & evaluated the patient, The case was reviewed & discussed with the resident, I agree w/resident's findings & plan, Exceptions are as noted - HPI HPI: 05/28/19 19:30 48y F hx of MS, gerd, previous treatment for hpylori presens with 1 week of n, abd bloating, burning, and sensatin of someting in her throat worse after eating. Pt notes pain improves with ranitidine. deneis vomiting, f/c, sob, cp, back pain, diarrhea. exam: abd soft nontender, no cva tenderness general: well appearing, NAD card rrr, no mrg pulm cta b/l - Physicial Exam PE: 05/28/19 19:32 see above - Medical Decision Making 05/28/19 19:13 labs reviewed US shows some gall stones without signs of cholelithiasis pt feeling improved tolerating oral intake will dc with gi fu
--- NOTE | 2019-05-29 11:13 | EKG ---
Test Reason : Blood Pressure : / mmHG Vent. Rate : 101 BPM Atrial Rate : 101 BPM P-R Int : 124 ms QRS Dur : 074 ms QT Int : 338 ms P-R-T Axes : 047 053 022 degrees QTc Int : 438 ms POOR DATA QUALITY, INTERPRETATION MAY BE ADVERSELY AFFECTED SINUS TACHYCARDIA OTHERWISE NORMAL ECG WHEN COMPARED WITH ECG OF 08-JAN-2014 19:10, NO SIGNIFICANT CHANGE WAS FOUND Confirmed by Scott Adamson MD ([id number]) on 05/29/2019 11:13:25 AM Referred By: Confirmed By:Scott Adamson MD
== END 2019-05-28 19:43 | disposition home or self-care (01) ==
LOC: JER 15:37
PROC: 3E033GC Introduction of Other Therapeutic Substance into Peripheral Vein, Percutaneous Approach (ICD-10-PCS; principal; 2019-05-28)
PROC: 3E0337Z Introduction of Electrolytic and Water Balance Substance into Peripheral Vein, Percutaneous Approach (ICD-10-PCS; 2019-05-28)
DX: K29.60 Other gastritis without bleeding (principal); K21.9 Gastro-esophageal reflux disease without esophagitis; K80.20 Calculus of gallbladder without cholecystitis without obstruction; Z86.19 Personal history of other infectious and parasitic diseases
CPT/HCPCS: 36415; 76705-TC; 80053; 83690; 84484; 85025; 93005; 93010; 96365; 99283-25

== ENCOUNTER 2019-07-01 20:04 | Emergency (ER) | payer BC ==
[2019-07-01 20:14] VITALS: BMI 16.5
--- NOTE | 2019-07-01 20:29 | PDOC ---
History of Present Illness - General Chief Complaint: Pain Stated Complaint: ABD PAIN Time Seen by Provider: 07/01/19 20:29 - History of Present Illness Initial Comments: 48 year old woman with a PMH of MS, GERD, previous treatment for H pylori 2.5 years presenting with epigastric abdominal pain when not eating food then early satiety after eating for the past few months that acutely worsened today. Patient states that she has been treated for h.pylori a few years back sucessfully and has an appointment with edil on 07/30, however, her epigastric pain is too severe to ait for the appointment. She takes ranitidine daily for her GERD but states that it is not helping. Denies fevers, chills, nausea, vomiting, or diarrhea. 07/01/19 20:38 Past History - Past Medical History Allergies/Adverse Reactions: Allergies Allergy/AdvReac Type Severity Reaction Status Date / Time Iodinated Contrast Media Allergy Severe Difficulty Verified 05/28/19 15:49 [Iodinated Contrast Media - Breathing Oral and] Home Medications: Ambulatory Orders Amlodipine Besylate [Norvasc -] 5 mg PO DAILY 04/11/17 Interferon Beta-1A [Avonex] 30 mcg IM MONTHLY 03/07/18 Duloxetine HCl [Cymbalta] 60 mg PO DAILY 07/01/19 Ranitidine HCl [Zantac] 150 mg PO DAILY 07/01/19 COPD: No HTN: Yes Psychiatric Problems: Yes (DEPRESSION) Other medical history: multiple sclerosis - Psycho Social/Smoking Cessation Hx Smoking History: Never smoked Have you smoked in the past 12 months: No Hx Alcohol Use: No Drug/Substance Use Hx: No Substance Use Type: None Hx Substance Use Treatment: No Review of Systems - Review of Systems Constitutional: Yes: Loss of Appetite. No: Chills, Diaphoresis, Fever HEENTM: No: Eye Pain, Blurred Vision, Tearing Respiratory: No: Cough, Orthopnea, Shortness of Breath Cardiac (ROS): No: Chest Pain, Edema, Irregular Heart Rate ABD/GI: No: Diarrhea, Nausea : No: Burning, Dysuria, Discharge, Frequency Musculoskeletal: No: Back Pain, Joint Pain, Joint Swelling Integumentary: No: Lesions, Lumps, Pallor Neurological: No: Headache, Numbness, Paresthesia Psychiatric: No: Anxiety, Depression Hematologic/Lymphatic: No: Anemia, Blood Clots, Easy Bleeding *Physical Exam - Vital Signs Last Vital Signs Temp Pulse Resp BP Pulse Ox 98.7 F 80 18 161/87 97 07/01/19 20:10 07/01/19 20:10 07/01/19 20:10 07/01/19 20:10 07/01/19 20:10 - Physical Exam General Appearance: Yes: Nourished, Appropriately Dressed. No: Apparent Distress HEENT: positive: EOMI, MICKEY, Normal ENT Inspection, Normal Voice Neck: positive: Trachea midline, Normal Thyroid, Supple. negative: Tender, Rigid Respiratory/Chest: positive: Lungs Clear, Normal Breath Sounds. negative: Chest Tender, Respiratory Distress, Accessory Muscle Use Cardiovascular: positive: Regular Rhythm, Regular Rate Gastrointestinal/Abdominal: positive: Normal Bowel Sounds, Tender (epigastric tenderness to palpation), Flat, Soft Lymphatic: negative: Adenopathy, Tenderness Musculoskeletal: positive: Normal Inspection. negative: Decreased Range of Motion Extremity: positive: Normal Capillary Refill, Normal Inspection, Normal Range of Motion. negative: Tender Integumentary: positive: Normal Color, Dry, Warm Neurologic: positive: Fully Oriented, Alert, Normal Mood/Affect, Normal Response , Motor Strength 5/5 ED Treatment Course - LABORATORY CBC & Chemistry Diagram: 07/01/19 21:18 07/01/19 21:18 Medical Decision Making - Medical Decision Making 48 year old female with PMH of gallstones, GERD, and MS presenting with epigastric burning. Likely concerning for GERD exacerbation but should rule out cholecystitis given history of cholelithiasis. RUQ US negative for cholecystitis but weeks shave a hemangioma noted and choleliths. Patient's pain much improved after 1 L NS, Pepcid, Maalox, and Tylenol 1G. Will send home with maalox in addition to her home ranitidine. 07/01/19 22:44 Discharge - Discharge Information Problems reviewed: Yes Clinical Impression/Diagnosis: Epigastric pain Condition: Improved Disposition: HOME - Admission No - Follow up/Referral Referrals: Ninoska Chiang MD [Staff Physician] - - Patient Discharge Instructions Patient Printed Discharge Instructions: DI for Epigastric Pain Additional Instructions: Remy un seguimiento con kendall mdico GI pronto. Puede llamarlos nuevamente y decir que estuvo en la kai de emergencias para andrew si pueden darle roxy ashley ms temprana. Utilice Maalox y ranitidina a diario. Adems, asegrese de hablar sobre kendall ultrasonido con kendall mdico. Hubo un hemangioma en kendall hgado que debe discutir con kendall mdico. Regrese al servicio de urgencias si tiene sntomas nuevos o que empeoran. Print Language: MAORI - Post Discharge Activity
[2019-07-01] MEDS ORDERED: FAMOTIDINE 20 MG/50 ML IVPB 20 MG/50 ML MG IVPB ONE ×2 (21:10→21:14)
[2019-07-01] MEDS ORDERED: MAG HYDROX/AL HYDROX/SIMETH 30 ML UNIT-DOSE CUP PO ONE (21:10)
[2019-07-01] MEDS ORDERED: MAG HYDROX/AL HYDROX/SIMETH 30 ML UNIT-DOSE CUP ONE (21:14)
[2019-07-01] MEDS ORDERED: ACETAMINOPHEN 1000 MG/100 ML VIAL (NON FORMULARY) IVPB ONE (21:15)
[2019-07-01] MEDS ORDERED: ACETAMINOPHEN INJECTION 100 ML IVPB ONE (21:17)
[2019-07-01 21:24] LABS: BASO % 1.1 % (0-2.0); EOS % 4.1 % (0-4.5); HEMATOCRIT 38.5 % (32.4-45.2); HEMOGLOBIN 12.5 GM/dL (10.7-15.3); LYMPH % 32.4 % (8-40); MCH 27.9 pg (25.7-33.7); MCHC 32.5 g/dl (32.0-36.0); MEAN CELL VOLUME 85.8 fl (80-96); MEAN PLT VOLUME 8.9 fl (7.5-11.1); MONO % 7.3 % (3.8-10.2); NEUT % 55.1 % (42.8-82.8); PLATELET COUNT 418 K/MM3 (134-434); RBC 4.49 M/mm3 (3.60-5.2); RDW 14.3 % (11.6-15.6); WHITE BLOOD COUNT 7.3 K/mm3 (4.0-10.0)
[2019-07-01 21:56] LABS: ALBUMIN 4.4 g/dl (3.4-5.0); BILIRUBIN,DIRECT 0.1 mg/dL (0.0-0.2); BILIRUBIN,TOTAL 0.2 mg/dL (0.2-1); BLOOD UREA NITROGEN 12.4 mg/dL (7-18); CALCIUM 9.3 mg/dL (8.5-10.1); CREATININE 0.7 mg/dL (0.55-1.3); POTASSIUM 3.9 mmol/L (3.5-5.1); TOT PROT 9.2 g/dl (6.4-8.2)
--- NOTE | 2019-07-01 22:35 | PDOC ---
Attending Attestation - Resident Resident Name: Diane Crandall - ED Attending Attestation I have performed the following: I have examined & evaluated the patient, The case was reviewed & discussed with the resident, I agree w/resident's findings & plan, Exceptions are as noted - HPI HPI: 07/01/19 22:31 48 F with h/o GERD, MS, H pylori presenting to ED with epigastric pain and nausea. Pt reports intermittent pain for months. Was diagnosed with gallstones last month here. Pt has not been able to f/u with GI yet. Pt states that the pain worsened today. She denies any fevers. Denies vomiting/diarrhea. Denies CP/ SOB. - Physicial Exam PE: 07/01/19 22:34 "GENERAL: Awake, alert, and fully oriented, in no acute distress. HEAD: No signs of trauma EYES: PERRLA, EOMI, sclera anicteric, conjunctiva clear ENT: Auricles normal inspection, hearing grossly normal, nares patent, oropharynx clear without exudates. Moist mucosa NECK: Nontender, no stepoffs, Normal ROM, supple, no lymphadenopathy, JVD, or masses LUNGS: Breath sounds equal, clear to auscultation bilaterally. No wheezes, and no crackles HEART: Regular rate and rhythm, normal S1 and S2, no murmurs, rubs or gallops ABDOMEN: + epigastric TTP, normoactive bowel sounds. No guarding, no rebound. No masses EXTREMITIES: Normal range of motion, no edema. No clubbing or cyanosis. No cords, erythema, or tenderness NEUROLOGICAL: Cranial nerves II through XII intact. 5/5 strength and sensation in all extremities, Normal speech, normal gait, normal cerebellar function SKIN: Warm, Dry, normal turgor, no rashes or lesions noted. - Medical Decision Making 07/01/19 22:34 48 F with epigastric pain, negative nieves's. Has h/o gallstones so will eval for cholecystitis. - Labs - RUQ sono - GI cocktail 07/01/19 22:35 US shows cholelithiasis without cholecystitis, consistent with previous exams. Pt reassessed - now feels much better s/p GI cocktail. Tolerating PO Pt has GI f/u next month. Pt is well appearing, with normal vitals. Clinically stable for DC at this time. I discussed the physical exam findings, ancillary test results and final diagnoses with the patient. I answered all of the patient's questions. The patient was satisfied with the care received and felt comfortable with the discharge plan and treatment plan. The patient agrees to follow up with the primary care physician within 24-72 hours.
[2019-07-01 23:38] VITALS: BP 150/68; PULSE 78; TEMP 98
== END 2019-07-01 23:38 | disposition home or self-care (01) ==
LOC: JER 20:04
PROC: 3E033GC Introduction of Other Therapeutic Substance into Peripheral Vein, Percutaneous Approach (ICD-10-PCS; principal; 2019-07-01)
PROC: 3E033NZ Introduction of Analgesics, Hypnotics, Sedatives into Peripheral Vein, Percutaneous Approach (ICD-10-PCS; 2019-07-01)
DX: K80.20 Calculus of gallbladder without cholecystitis without obstruction (principal); K21.9 Gastro-esophageal reflux disease without esophagitis; G35 Multiple sclerosis; Z86.19 Personal history of other infectious and parasitic diseases; Z91.041 Radiographic dye allergy status
CPT/HCPCS: 36415; 76705-TC; 80053; 82248; 83690; 85025; 96365; 96375; 99282-25; J0131

== ENCOUNTER 2019-08-17 19:05 | Emergency (ER) | payer BC ==
[2019-08-17 19:43] VITALS: BP 156/95; PULSE 102; TEMP 98.3; BMI 15.5
--- NOTE | 2019-08-17 20:47 | PDOC ---
History of Present Illness - General Chief Complaint: Pain, Acute Stated Complaint: ABD PAIN Time Seen by Provider: 08/17/19 20:45 - History of Present Illness Initial Comments: 08/17/19 22:20 Ms. Dejesus is a 48F with a pmhx of HTN, MS, GERD, and Hpylori infection tx 2 years ago, presenting to the ED with epigastric pain. She reports the pain is worse with eating, is 9/10 in intensity, "stabbing" and non-radiating. She reports that maalox makes her pain "a little" better and nothing makes the pain worse. She said the pain is making it difficult for her to eat or sleep. She says she came to the ED with similar complaints 1mo ago and was found to have nonobstructing gallstones. At that time her sx resolved with 1LNS, pepcid, maalox and ofirmev. She was discharged home from the ED and instructed to f/u with GI as an outpatient which she had done. According to the pt, the GI doctor did not think her gallstones were the cause of her problems and instead suspected she had a stomach ulcer because she had a +FOBT in the office. She was scheduled to have an endoscopy on Aug 28. 08/17/19 22:44 Past History - Past Medical History Allergies/Adverse Reactions: Allergies Allergy/AdvReac Type Severity Reaction Status Date / Time Iodinated Contrast Media Allergy Severe Difficulty Verified 08/17/19 20:26 [Iodinated Contrast Media - Breathing Oral and] Home Medications: Ambulatory Orders Amlodipine Besylate [Norvasc -] 5 mg PO DAILY 04/11/17 Interferon Beta-1A [Avonex] 30 mcg IM MONTHLY 03/07/18 Duloxetine HCl [Cymbalta] 60 mg PO DAILY 07/01/19 Ranitidine HCl [Zantac] 150 mg PO DAILY 07/01/19 COPD: No HTN: Yes Psychiatric Problems: Yes (DEPRESSION) - Psycho Social/Smoking Cessation Hx Smoking History: Never smoked Have you smoked in the past 12 months: No Hx Alcohol Use: No Drug/Substance Use Hx: No Substance Use Type: None Hx Substance Use Treatment: No *Physical Exam - Vital Signs Last Vital Signs Temp Pulse Resp BP Pulse Ox 98.3 F 102 H 19 156/95 96 08/17/19 19:39 08/17/19 19:39 08/17/19 19:39 08/17/19 19:39 08/17/19 19:39 Discharge - Follow up/Referral Referrals: Lidia Brown [Primary Care Provider] - - Patient Discharge Instructions - Post Discharge Activity
--- NOTE | 2019-08-17 22:13 | PDOC ---
Documentation entered by Jose Curtis SCRIBE, acting as scribe for Jessica Brady MD. Jessica Brady MD: This documentation has been prepared by the Ever harris Daniel, SCRIBE, under my direction and personally reviewed by me in its entirety. I confirm that the documentation accurately reflects all work, treatment, procedures, and medical decision making performed by me. Attending Attestation - Resident Resident Name: Juany Dotson - ED Attending Attestation I have performed the following: I have examined & evaluated the patient, The case was reviewed & discussed with the resident, I agree w/resident's findings & plan, Exceptions are as noted - HPI HPI: 08/18/19 00:28 48 yo F h/o cholelthiasis, frequent epigastric pain, here with c/o pain. describes as burning. stats she has had similar pain in the past , which is resolved with pepcid and maalox. has seen GI and is scheduled to have a endoscopy in 2 weeks. does have nausea. no vomitng. no f/c no other ocmplaints. no urinary sxs. no diarhea. - Physicial Exam PE: 08/18/19 00:29 awake alert lungs clear bilat heart rrr no mrg abd soft mmild epigastric ttp. no rebound no guarding. - Medical Decision Making 08/17/19 22:12 48 yo f h/o MS, chlolelithiasis, here with c/o epigastric pain. has had occult fecal positive test in the past. is scheduled for endoscopy 08/28 with GI, states she wants pepcid ivf, and dc home. no f/c mild nauseae, no vomiting. 08/18/19 00:29 pt received ruq us, and labs, left prior to receiving results . pt ws seen eating and tolerating PO prior to leaving. left note states can call her [phone] 08/18/19 00:32 called pt to inform of her results. states she is feeling better and will fu with GI.
[2019-08-17 23:54] LABS: EOS % 1.9 % (0-4.5); HEMATOCRIT 36.1 % (32.4-45.2); HEMOGLOBIN 12.1 GM/dL (10.7-15.3); LYMPH % 40.5 % (8-40); MCH 28.3 pg (25.7-33.7); MCHC 33.4 g/dl (32.0-36.0); MEAN CELL VOLUME 84.9 fl (80-96); MEAN PLT VOLUME 8.5 fl (7.5-11.1); MONO % 9.6 % (3.8-10.2); PLATELET COUNT 386 K/MM3 (134-434); RBC 4.26 M/mm3 (3.60-5.2); RDW 14.7 % (11.6-15.6); WHITE BLOOD COUNT 5.5 K/mm3 (4.0-10.0)
[2019-08-18 00:21] LABS: ALBUMIN 3.7 g/dl (3.4-5.0); BILIRUBIN,TOTAL 0.2 mg/dL (0.2-1); BLOOD UREA NITROGEN 7.8 mg/dL (7-18); CALCIUM 8.9 mg/dL (8.5-10.1); CREATININE 0.7 mg/dL (0.55-1.3); POTASSIUM 3.7 mmol/L (3.5-5.1)
== END 2019-08-17 23:51 | disposition left against medical advice (07) ==
LOC: JER 19:05
DX: R10.13 Epigastric pain (principal); I10 Essential (primary) hypertension; F32.9 Major depressive disorder, single episode, unspecified; K21.9 Gastro-esophageal reflux disease without esophagitis; K80.20 Calculus of gallbladder without cholecystitis without obstruction; Z91.041 Radiographic dye allergy status
CPT/HCPCS: 36415; 76705-TC; 80053; 83690; 85025; 99282-25

== ENCOUNTER 2019-08-31 09:17 | Day surgery (SDC) | payer BC ==
[2019-08-31 09:53] VITALS: BMI 16.5
[2019-08-31 10:57] VITALS: TEMP 97.7
[2019-08-31 12:32] VITALS: BP 115/91; PULSE 66
--- NOTE | 2019-09-03 10:09 | PATH ---
Surgical Pathology Report Patient Name: KILLIAN RAMOS [facility]. Rec. #: [id number] /Age/Gender: 1970 (Age: 48) / F Account: [id number] Location: [facility]-ENDOSCOPY Taken: 08/31/2019 Received: 08/31/2019 Reported: 09/03/2019 Physicians: Ninoska Chiang M.D. Specimen(s) Received A: DUODENUM, SECOND PORTION AND DUODENAL BULB B: ANTRUM Clinical History Weight loss, occult bleed, early satiety Postoperative diagnosis: Atrophic gastritis Final Diagnosis A. DUODENUM, SECOND PORTION AND DUODENAL BULB, BIOPSY: DUODENAL MUCOSA WITH PROMINENT LYMPHOID AGGREGATES. B. STOMACH, ANTRUM, BIOPSY: GASTRIC ANTRAL MUCOSA WITH MILD CHRONIC GASTRITIS. IMMUNOHISTOCHEMICAL STAIN FOR H. PYLORI IS NEGATIVE. Electronically Signed Nallely Chavez M.D. Gross Description A. Received in formalin, labeled "biopsy second portion of duodenum and duodenal bulb" are 5 fairchild, irregular portions of soft tissue ranging from 0.2-0.4 cm. in greatest dimension. The specimens are submitted in toto in one cassette. B. Received in formalin, labeled "biopsy antrum" are 3 fairchild, irregular portions of soft tissue ranging from 0.3-0.6 cm. in greatest dimension. The specimens are submitted in toto in one cassette. 08/31/201908/31/2019
== END 2019-08-31 11:58 | disposition home or self-care (01) ==
LOC: JASU-ENDO 09:17
PROVIDERS: ATTEND Internal Medicine Gastroenterology
PROC: 0DB68ZX Excision of Stomach, Via Natural or Artificial Opening Endoscopic, Diagnostic (ICD-10-PCS; 2019-08-31)
PROC: 0DB98ZX Excision of Duodenum, Via Natural or Artificial Opening Endoscopic, Diagnostic (ICD-10-PCS; principal; 2019-08-31 08:00)
DX: K29.50 Unspecified chronic gastritis without bleeding (principal); K31.9 Disease of stomach and duodenum, unspecified; R68.81 Early satiety; R63.4 Abnormal weight loss; R10.13 Epigastric pain
CPT/HCPCS: 81025; 88305-TC; 88342-TC

== ENCOUNTER 2021-05-05 17:35 | Emergency (ER) | payer OTHER ==
[2021-05-05 17:51] VITALS: BMI 18.7
[2021-05-05] MEDS ORDERED: SODIUM CHLORIDE 0.9% 500 ML INFUS.BAG IV ONE (20:24)
[2021-05-05] MEDS ORDERED: ACETAMINOPHEN 1000 MG/100 ML VIAL (NON FORMULARY) IVPB ONE (20:24)
[2021-05-05] MEDS ORDERED: ONDANSETRON 4 MG/2 ML VIAL IVPUSH ONE (20:25)
[2021-05-05] MEDS ORDERED: ONDANSETRON 4 MG/2 ML VIAL ONE (20:34)
[2021-05-05] MEDS ORDERED: ACETAMINOPHEN INJECTION 100 ML IVPB ONE (20:35)
[2021-05-05] MEDS ORDERED: MAG HYDROX/AL HYDROX/SIMETH 30 ML UNIT-DOSE CUP PO ONE (20:46)
[2021-05-05] MEDS ORDERED: FAMOTIDINE 20 MG/50 ML IVPB 20 MG/50 ML MG IVPB ONE ×2 (20:46→21:13)
[2021-05-05] MEDS ORDERED: MAG HYDROX/AL HYDROX/SIMETH 30 ML UNIT-DOSE CUP ONE (21:13)
[2021-05-05 21:22] LABS: BASO % 0.9 % (0-2.0); EOS % 0.9 % (0-4.5); HEMATOCRIT 37.7 % (32.4-45.2); HEMOGLOBIN 12.5 GM/dL (10.7-15.3); LYMPH % 35.8 % (8-40); MCH 27.5 pg (25.7-33.7); MCHC 33.1 g/dl (32.0-36.0); MEAN CELL VOLUME 83.3 fl (80-96); MEAN PLT VOLUME 7.3 fl (7.5-11.1); MONO % 11.5 % (3.8-10.2); NEUT % 50.9 % (42.8-82.8); PLATELET COUNT 354 10^3/uL (134-434); RBC 4.52 M/mm3 (3.60-5.2); RDW 15.2 % (11.6-15.6); WHITE BLOOD COUNT 6.1 K/mm3 (4.0-10.0)
[2021-05-05 21:38] LABS: CHLORIDE 106 mmol/L (98-107); SODIUM 139 mmol/L (136-145)
[2021-05-05 21:41] LABS: ALBUMIN 4.2 g/dl (3.4-5.0); ANION GAP 5 MMOL/L (8-16); CO2 28 mmol/L (21-32); GLUCOSE,RANDOM 78 mg/dL (74-106); LIPASE 177 U/L (73-393)
[2021-05-05 21:42] LABS: BLOOD UREA NITROGEN 12.3 mg/dL (7-18)
[2021-05-05 21:44] LABS: CREATININE 0.9 mg/dL (0.55-1.3); SGOT/AST 19 U/L (15-37); SGPT/ALT 17 U/L (13-61)
[2021-05-05 21:45] LABS: BILIRUBIN,TOTAL 0.3 mg/dL (0.2-1); TOT PROT 8.5 g/dl (6.4-8.2)
[2021-05-05 21:46] LABS: ALK PHOS 67 U/L (45-117)
[2021-05-05 22:08] LABS: PH,URINE 6.5 (5.0-8.0); URINE APPEARANCE CLEAR; URINE BILIRUBIN NEGATIVE (NEGATIVE); URINE COLOR YELLOW; URINE GLUCOSE (UA) NEGATIVE (NEGATIVE); URINE KETONE NEGATIVE (NEGATIVE); URINE LEUK ESTERASE NEGATIVE (NEGATIVE); URINE NITRITE NEGATIVE (NEGATIVE); URINE PROTEIN NEGATIVE (NEGATIVE); URINE UROBILINOGEN 0.2 mg/dL (0.2-1.0)
[2021-05-06 01:42] VITALS: BP 144/95; PULSE 66; TEMP 97.6
== END 2021-05-06 04:50 | disposition home or self-care (01) ==
LOC: JER 17:35
PROC: 3E033GC Introduction of Other Therapeutic Substance into Peripheral Vein, Percutaneous Approach (ICD-10-PCS; principal; 2021-05-05)
DX: R10.13 Epigastric pain (principal); R10.31 Right lower quadrant pain
CPT/HCPCS: 36415; 71046-TC-FY; 74177-TC; 76705-TC; 80053; 81003; 83690; 84484; 85025; 93005; 93010; 99285-25; C9803; J0131; Q9967; U0003; U0005

== ENCOUNTER 2022-10-26 16:06 | Emergency (ER) | payer OTHER ==
[2022-10-26 16:18] VITALS: BP 129/76; PULSE 81; RESP 18; TEMP 98; BMI 16.9
[2022-10-26] MEDS ORDERED: KETOROLAC TROMETHAMINE 15 MG/ML VIAL IVPUSH ONE (17:08)
[2022-10-26] MEDS ORDERED: KETOROLAC TROMETHAMINE 15 MG/ML VIAL ONE (17:10)
[2022-10-26 17:41] LABS: EOS % 1.9 % (0-4.5); HEMATOCRIT 38.1 % (32.4-45.2); HEMOGLOBIN 12.4 GM/dL (10.7-15.3); LYMPH % 23.3 % (8-40); MCH 27.8 pg (25.7-33.7); MCHC 32.4 g/dl (32.0-36.0); MEAN CELL VOLUME 85.7 fl (80-96); MEAN PLT VOLUME 7.4 fl (7.5-11.1); MONO % 7.2 % (3.8-10.2); NEUT % 66.6 % (42.8-82.8); PLATELET COUNT 374 10^3/uL (134-434); RBC 4.45 M/mm3 (3.60-5.2); RDW 15.7 % (11.6-15.6); WHITE BLOOD COUNT 7.6 K/mm3 (4.0-10.0)
[2022-10-26 17:57] LABS: CALCIUM 9.4 mg/dL (8.5-10.1)
[2022-10-26 17:58] LABS: ALBUMIN 3.9 g/dl (3.4-5.0)
[2022-10-26 18:00] LABS: URIC ACID 2.8 mg/dL (2.6-7.2)
[2022-10-26 18:01] LABS: CREATININE 0.8 mg/dL (0.55-1.3)
[2022-10-26 18:02] LABS: BILIRUBIN,TOTAL 0.5 mg/dL (0.2-1)
[2022-10-26 18:03] LABS: TOT PROT 8.3 g/dl (6.4-8.2)
== END 2022-10-26 18:23 | disposition home or self-care (01) ==
LOC: JERFT 16:06 → JER 16:06 → JERFT 18:23
PROC: 3E033GC Introduction of Other Therapeutic Substance into Peripheral Vein, Percutaneous Approach (ICD-10-PCS; principal; 2022-10-26)
DX: L03.116 Cellulitis of left lower limb (principal)
CPT/HCPCS: 36415; 73610-TC-LT-FY; 73630-TC-LT; 80053; 84550; 85025; 93971-TC; 96374; 99284-25